=== PATIENT | male | born 1960 | race Caucasian/White ===

== ENCOUNTER → 2023-11-19 | Outpatient (REF) | payer MEDICARE ==
[~2023-11-19] MED LIST: ATEN50TA2; IBUP600T; LIDODERM PATCH; SOMA350T; VICODINES TAB
[2023-11-19 13:49] LABS: APPEARANCE, URINE HAZY (CLEAR); BACTERIA, URINE AUTO NEGATIVE (NEGATIVE); BILIRUBIN, URINE AUTO NEGATIVE (NEGATIVE); BLOOD, URINE BLOOD NEGATIVE (NEGATIVE); COLOR, URINE AMBER (YELLOW); GLUCOSE, URINE (UA) AUTO 2+ mg/dL (NEGATIVE); KETONE, URINE AUTO NEGATIVE (NEGATIVE); LEUKOCYTE ESTERASE, URINE AUTO TRACE (NEGATIVE); MUCUS, URINE SMALL (NEGATIVE); NITRITE, URINE AUTO NEGATIVE (NEGATIVE); PROTEIN, URINE AUTO 2+ mg/dL (NEGATIVE); RBC, URINE AUTO 1 /HPF (0-3); SPECIFIC GRAVITY URINE AUTO 1.034 (1.002-1.035); SQUAMOUS EPITHELIAL CELL UR AU 1 /HPF (0-6); UROBILINOGEN, URINE AUTO 0.2 mg/dL (0.0-2.0); WBC, URINE AUTO 2 /HPF (0-3)
== END ==
LOC: M LABSMT 10:31
PROVIDERS: ATTEND Urology
DX: R97.20 Elevated prostate specific antigen [PSA] (principal)

== ENCOUNTER → 2023-12-12 | Outpatient (REF) | payer MEDICARE | LOC: M SMT PRO 09:58 | PROVIDERS: ATTEND Urology | DX: C61 Malignant neoplasm of prostate (principal); R97.20 Elevated prostate specific antigen [PSA]; N40.0 Benign prostatic hyperplasia without lower urinary tract symptoms; Z79.891 Long term (current) use of opiate analgesic; Z79.1 Long term (current) use of non-steroidal anti-inflammatories (NSAID); Z88.8 Allergy status to other drugs, medicaments and biological substances; Z88.5 Allergy status to narcotic agent ==

== ENCOUNTER → 2023-12-12 | Outpatient (REF) | payer MEDICARE ==
[2023-12-12 12:00] LABS: APPEARANCE, URINE HAZY (CLEAR); BACTERIA, URINE AUTO NEGATIVE (NEGATIVE); BILIRUBIN, URINE AUTO NEGATIVE (NEGATIVE); BLOOD, URINE BLOOD 1+ (NEGATIVE); COLOR, URINE YELLOW (YELLOW); GLUCOSE, URINE (UA) AUTO 1+ mg/dL (NEGATIVE); KETONE, URINE AUTO NEGATIVE (NEGATIVE); LEUKOCYTE ESTERASE, URINE AUTO NEGATIVE (NEGATIVE); MUCUS, URINE SMALL (NEGATIVE); NITRITE, URINE AUTO NEGATIVE (NEGATIVE); PROTEIN, URINE AUTO 2+ mg/dL (NEGATIVE); RBC, URINE AUTO 10 /HPF (0-3); SPECIFIC GRAVITY URINE AUTO 1.025 (1.002-1.035); SQUAMOUS EPITHELIAL CELL UR AU 0 /HPF (0-6); UROBILINOGEN, URINE AUTO 0.2 mg/dL (0.0-2.0); WBC, URINE AUTO 2 /HPF (0-3)
== END ==
LOC: M SMT 10:04
PROVIDERS: ATTEND Urology
DX: R97.20 Elevated prostate specific antigen [PSA] (principal)

== ENCOUNTER 2024-02-11 10:12 | Day surgery (SDC) | payer MEDICARE ==
[~2024-02-11] VITALS: Ht 172.7 cm; Wt 144.2 kg
[~2024-02-11 10:12] MED LIST changes: +HYDR-4517 PO; +IBUP1TAB6 PO
[2024-02-11] MEDS: ceFAZolin SOD 2 GM in IV 1 EA IV ONE (12:22)
[2024-02-11] MEDS: ceFAZolin SOD 1 GM in D5W MINI-BAG PLUS 50 ML IV ONE (12:22)
[2024-02-11] MEDS ORDERED: ONDANSETRON 4MG 2ML VIAL IV PRN ×2 (12:35→18:15)
[2024-02-11] MEDS ORDERED: ACETAMINOPHEN TAB 650MG DOSE (2X325MG) PO PRN (12:35)
[2024-02-11] MEDS ORDERED: PERCOCET 5MG/325MG TAB PO PRN (12:35)
[2024-02-11] MEDS ORDERED: ROCURONIUM BROMIDE 50MG/5ML VIAL As Ordered ONE (12:59)
[2024-02-11] MEDS ORDERED: MIDAZOLAM INJ 2MG/2ML VIAL As Ordered ONE (12:59)
[2024-02-11] MEDS ORDERED: ONDANSETRON 4MG 2ML VIAL As Ordered ONE (12:59)
[2024-02-11] MEDS ORDERED: propofoL 200 MG/20 ML VIAL As Ordered ONE (12:59)
[2024-02-11] MEDS ORDERED: fentaNYL 250 MCG/5 ML INJECTION As Ordered ONE (12:59)
[2024-02-11] MEDS ORDERED: METOCLOPRAMIDE INJ 10MG/2ML VIAL As Ordered ONE (12:59)
[2024-02-11] MEDS ORDERED: HYDROmorphone HCL 2MG/ML 1ML VIAL As Ordered ONE (12:59)
[2024-02-11] MEDS ORDERED: SUGAMMADEX SODIUM 500 MG/5 ML VIAL (BRIDION) As Ordered ONE (12:59)
[2024-02-11] MEDS ORDERED: LIDOCAINE 2% 100MG/5ML SDV (FOR ANES.) As Ordered ONE (12:59)
[2024-02-11] MEDS: HEPARIN SOD (PORCINE) 5000UNITS/ML 1ML VIAL/SYRINGE SQ ONE (13:00)
[2024-02-11] MEDS ORDERED: DESFLURANE 240 ML INHALANT As Ordered ONE (13:18)
[2024-02-11] MEDS ORDERED: PHENYLephrine 500MCG 5ML (100MCG/ML) SYRINGE As Ordered ONE (13:27)
[2024-02-11] MEDS: ceFAZolin 2 GM/D5W 50 ML IV BAG As Ordered ONE (17:43)
[2024-02-11] MEDS ORDERED: MORPHINE 2 MG/ML 1ML VIAL IV PRN (18:15)
[2024-02-11] MEDS: LIDOCAINE 1% SDV 30ML VIAL As Ordered ONE (18:27)
[2024-02-11] MEDS ORDERED: GLUCOSE 4 GM CHEW PO PRN (18:45)
[2024-02-11] MEDS ORDERED: DEXTROSE 50% 50ML SYRINGE IV PRN (18:45)
[2024-02-11] MEDS ORDERED: GLUCAGON INJ 1MG VIAL SC PRN (18:45)
[2024-02-11] MEDS: LABETALOL 100MG/20ML VIAL IV PRN (19:01)
[2024-02-11] MEDS: INSULIN LISPRO (NovoLOG) PER UNIT SC PRN (19:05)
[2024-02-11 19:14] LABS: HEMATOCRIT 47.5 % (42.0-52.0); HEMOGLOBIN 15.7 g/dl (13.5-17.5); MEAN CORPUSCULAR HEMOGLOBIN 30.7 pg (27.0-33.0); MEAN CORPUSCULAR HGB CONC 33.1 g/dl (32.0-36.5); PLATELET COUNT, AUTOMATED 256 10^3/uL (150-450); RED BLOOD COUNT 5.11 10^6/uL (4.30-6.10); WHITE BLOOD COUNT 13.4 10^3/uL (4.0-10.0)
[2024-02-11] MEDS: oxyCODONE 5MG TAB PO PRN (19:23)
[2024-02-11 19:44] LABS: BLOOD UREA NITROGEN 11 MG/DL (9-23); CALCIUM LEVEL 8.6 MG/DL (8.3-10.6); CARBON DIOXIDE LEVEL 24 MMOL/L (20-31); CHLORIDE LEVEL 104 MMOL/L (98-107); CREATININE FOR GFR 1.04 MG/DL (0.70-1.30); GLOMERULAR FILTRATION RATE > 60.0 (>49); GLUCOSE, FASTING 197 MG/DL (74-106); POTASSIUM SERUM 4.4 MMOL/L (3.5-5.1); SODIUM LEVEL 138 MMOL/L (136-145)
[2024-02-11] MEDS: hydrALAZINE 20MG/ML 1ML VIAL IV PRN (19:46)
[2024-02-11 20:30] VITALS: BP 149/88; TEMP 97.2; O2SAT 93
[2024-02-11 21:00] VITALS: BP 149/94; TEMP 97.2; O2SAT 92
[2024-02-11 21:30] VITALS: BP 125/66; TEMP 97.5; O2SAT 92
[2024-02-11] MEDS: DOCUSATE SODIUM 100MG CAPSULE PO SCH (21:45)
[2024-02-11] MEDS: NS 1,000 ML IV SCH (21:45)
[2024-02-11] MEDS: HEPARIN SOD (PORCINE) 5000UNITS/ML 1ML VIAL/SYRINGE SC SCH (21:45)
[2024-02-11] MEDS: ceFAZolin SOD 1 GM in D5W MINI-BAG PLUS 50 ML IV SCH (21:46)
[2024-02-11 22:30] VITALS: BP 163/90; TEMP 96.9; O2SAT 91
[2024-02-11] MEDS: LR 1,000 ML IV SCH (22:34)
[2024-02-11] MEDS: INSULIN LISPRO (NovoLOG) PER UNIT SC SCH (23:05)
[2024-02-11 23:30] VITALS: BP 133/72; TEMP 97.5; O2SAT 92
[2024-02-12 00:28] VITALS: BP 108/59; TEMP 97.7; O2SAT 92
[2024-02-12] MEDS: PERCOCET 5MG/325MG TAB PO PRN (01:01)
[2024-02-12 01:30] VITALS: BP 116/64; TEMP 97.5; O2SAT 91
[2024-02-12 02:30] VITALS: O2SAT 93
[2024-02-12 02:37] VITALS: O2SAT 95
[2024-02-12 06:00] VITALS: BP 134/69; TEMP 97.5; O2SAT 95
[2024-02-12 07:33] LABS: HEMATOCRIT 41.3 % (42.0-52.0); MEAN CORPUSCULAR HEMOGLOBIN 30.4 pg (27.0-33.0); MEAN CORPUSCULAR HGB CONC 32.4 g/dl (32.0-36.5); MEAN CORPUSCULAR VOLUME 93.7 fl (80.0-96.0); PLATELET COUNT, AUTOMATED 244 10^3/uL (150-450); RED BLOOD COUNT 4.41 10^6/uL (4.30-6.10); WHITE BLOOD COUNT 11.5 10^3/uL (4.0-10.0)
[2024-02-12 07:34] LABS: HEMOGLOBIN 13.4 g/dl (13.5-17.5)
[2024-02-12 07:54] LABS: BLOOD UREA NITROGEN 13 MG/DL (9-23); CALCIUM LEVEL 8.3 MG/DL (8.3-10.6); CARBON DIOXIDE LEVEL 29 MMOL/L (20-31); CHLORIDE LEVEL 107 MMOL/L (98-107); CREATININE FOR GFR 1.07 MG/DL (0.70-1.30); GLOMERULAR FILTRATION RATE > 60.0 (>49); GLUCOSE, FASTING 160 MG/DL (74-106); POTASSIUM SERUM 4.3 MMOL/L (3.5-5.1); SODIUM LEVEL 141 MMOL/L (136-145)
[2024-02-12] MEDS: INSULIN LISPRO (NovoLOG) PER UNIT SC SCH (10:00)
[2024-02-12 14:00] VITALS: BP 149/80; TEMP 97.7; O2SAT 93
[2024-02-12] MEDS ORDERED: BACT800T5 PO (16:00)
[2024-02-12] MEDS ORDERED: COLA100C5 PO (16:00)
== END 2024-02-12 16:58 | disposition home or self-care (01) ==
LOC: M SDC 10:12 → UNDOADMIN 10:12 → M OR 10:12 → EDSTATUS 13:00 → M MSPAV 20:28 → M OR 20:28 → M MSPAV 20:28 → UNDODISIN 02-12 16:58 → M SDC 02-12 16:58
PROVIDERS: ATTEND Urology
DX: C61 Malignant neoplasm of prostate (principal); E66.01 Morbid (severe) obesity due to excess calories; Z68.42 Body mass index [BMI] 45.0-49.9, adult; E11.9 Type 2 diabetes mellitus without complications; Z98.1 Arthrodesis status; Z88.1 Allergy status to other antibiotic agents; Z88.4 Allergy status to anesthetic agent
CPT/HCPCS: 36415; 55866; 80048; 85027; 86850; 86900; 86901; 88309; 96365; 96372; J0360; J0665; J0690; J1100; J1170; J1815; J1920; J2250; J2371; J2405; J2765; J3010

== ENCOUNTER → 2024-02-26 | Outpatient (CLI) | payer MEDICARE ==
[~2024-02-26] MED LIST changes: +BACT800T5 PO; +COLA100C5 PO; +DIATRIZOATE MEGLUMINE 30% 300ML (300MG/ML) CYSTOGRAFIN As Ordered ONE
== END ==
LOC: M RADPRO 09:03
PROVIDERS: ATTEND Urology
DX: R32 Unspecified urinary incontinence (principal)
CPT/HCPCS: 51610; 74430; Q9958

== ENCOUNTER → 2024-03-11 | Outpatient (REF) | payer MEDICARE ==
[~2024-03-11] MED LIST changes: -DIATRIZOATE MEGLUMINE 30% 300ML (300MG/ML) CYSTOGRAFIN As Ordered ONE
[2024-03-11 13:21] LABS: AMORPHOUS SEDIMENT SMALL (NEGATIVE); APPEARANCE, URINE TURBID (CLEAR); BACTERIA, URINE AUTO NEGATIVE (NEGATIVE); BILIRUBIN, URINE AUTO NEGATIVE (NEGATIVE); BLOOD, URINE BLOOD 1+ (NEGATIVE); COLOR, URINE AMBER (YELLOW); GLUCOSE, URINE (UA) AUTO 1+ mg/dL (NEGATIVE); KETONE, URINE AUTO NEGATIVE (NEGATIVE); LEUKOCYTE ESTERASE, URINE AUTO 3+ (NEGATIVE); MUCUS, URINE SMALL (NEGATIVE); NITRITE, URINE AUTO POSITIVE (NEGATIVE); PROTEIN, URINE AUTO 3+ mg/dL (NEGATIVE); RBC, URINE AUTO TNTC /HPF (0-3); RENAL EPITHELIAL CELLS 2 /HPF; SPECIFIC GRAVITY URINE AUTO 1.019 (1.002-1.035); SQUAMOUS EPITHELIAL CELL UR AU 0 /HPF (0-6); UROBILINOGEN, URINE AUTO 0.2 mg/dL (0.0-2.0); WBC, URINE AUTO 45 /HPF (0-3)
== END ==
LOC: M SMT 12:30
PROVIDERS: ATTEND Urology
DX: C61 Malignant neoplasm of prostate (principal)

== ENCOUNTER → 2024-03-17 | Outpatient (CLI) | payer MEDICARE ==
[~2024-03-17] MED LIST changes: +DIATRIZOATE MEGLUMINE 30% 300ML (300MG/ML) CYSTOGRAFIN As Ordered ONE
== END ==
LOC: M RADPRO 08:45
PROVIDERS: ATTEND Urology
DX: R32 Unspecified urinary incontinence (principal); C61 Malignant neoplasm of prostate
CPT/HCPCS: 36415; 51610; 74430; 84153; Q9958